=== PATIENT | male | born 2000 | race Caucasian/White ===

== ENCOUNTER 2021-04-24 09:11 | Day surgery (SDC) | payer OTHER ==
[2021-04-22 15:41] VITALS: BMI 30.4
[2021-04-24] MEDS ORDERED: LIDOCAINE 1% P/F 10 MG/ML VIAL ONE (10:23)
[2021-04-24] MEDS ORDERED: MIDAZOLAM HCL 2 MG/2 ML SINGLE DOSE VIAL ONE (10:23)
[2021-04-24] MEDS ORDERED: LIDOCAINE HCL 2% (20ML MULTI-DOSE VIAL) ONE (10:24)
[2021-04-24] MEDS ORDERED: ROPIVACAINE HCL 0.5% 30ML VIAL ONE (10:24)
[2021-04-24] MEDS ORDERED: BUPIVACAINE HCL/PF 2.5 MG/ML - 30 ML VIAL IJ ONE (10:58)
[2021-04-24] MEDS ORDERED: EPINEPHrine/PF 1 MG/1 ML (1:1,000) AMPULE ONE (10:58)
[2021-04-24] MEDS ORDERED: PROPOFOL 20 ML ONE ×2 (11:15)
[2021-04-24] MEDS ORDERED: oxyCODONE HCL 5 MG TABLET PO PRN (12:59)
[2021-04-24] MEDS ORDERED: ONDANSETRON 4 MG/2 ML VIAL IVPUSH PRN (12:59)
[2021-04-24] MEDS ORDERED: LACTATED RINGERS SOLUTION 1,000 ML IV SCH (13:00)
[2021-04-24 13:53] VITALS: TEMP 97.1
[2021-04-24 14:23] VITALS: BP 132/72; PULSE 77
== END 2021-04-24 14:15 | disposition home or self-care (01) ==
LOC: FASU 09:11
PROVIDERS: ATTEND Orthopaedic Surgery
PROC: 0XJ Anatomical Regions, Upper Extremities, Inspection (ICD-10-PCS; principal; 2021-04-24 11:47)
DX: S46.212A Strain of muscle, fascia and tendon of other parts of biceps, left arm, initial encounter (principal); X58.XXXA Exposure to other specified factors, initial encounter; Y93.9 Activity, unspecified; Y92.9 Unspecified place or not applicable
CPT/HCPCS: 94760